=== PATIENT | female | born 1995 ===

== ENCOUNTER 2016-10-02 05:17 | Emergency (ER) | payer BC ==
[2016-10-02 05:34] VITALS: BP 97/56; PULSE 67; TEMP 97.9; BMI 19.5
[2016-10-02] MEDS ORDERED: SODIUM CHLORIDE 1,000 ML IV ONE ×2 (05:56→06:06)
[2016-10-02] MEDS ORDERED: ONDANSETRON 4 MG/2 ML VIAL IVPUSH ONE (05:57)
--- NOTE | 2016-10-02 06:02 | PDOC ---
History of Present Illness - General Chief Complaint: Vomiting/Diarrhea Stated Complaint: FOOD POISONING Time Seen by Provider: 10/02/16 06:01 History Source: Patient Exam Limitations: No Limitations - History of Present Illness Initial Comments: 10/02/16 06:07 This is a 21-year-old female who comes in complaining of nausea vomiting and diarrhea overnight. Patient said she's had multiple episodes of nausea vomiting and diarrhea. Patient denies any fevers or chills. Patient said that she has intermittent mild abdominal pain upper abdominal pain when she vomits and lower abdominal pain and diarrhea. Patient is otherwise healthy. PAST MEDICAL HISTORY: no significant history PAST SURGICAL HISTORY: no significant history FAMILY HISTORY: no pertinant history SOCIAL HISTORY: Pt lives with family and is employed. MEDICATIONS: reviewed ALLERGIES: As per nursing notes Review of Systems General: No fevers or chills, no weakness, no weight loss HEENT: No change in vision. No sore throat,. No ear pain CardioVascular: No chest pain or shortness of breath Respiratory:No cough, or wheezing. Gastrointestinal: + nausea, + vomitting, + diarrhea no constipation, No rectal bleeding Genitourinary: No dysuria, hematuria, or frequency Musculoskeletal: No joint or muscle pain or swelling Neurologic: No headache, vertigo, dizziness or loss of consciousness Psychiatric: nor depression Skin: No rashes or easy bruising Endocrine: no increased thirst or abnormal weight change Allergic: no skin or latex allergy All other systems reviewed and normal Exam: General: Well-nourished well-developed individual, no acute distress HEENT: Throat: Normal, tonsils normal, no erythema or exudate, mucus membranes dry Neck: Supple, no meningeal signs, no lymphadenopathy Eyes::Pupils equal reactive and round, extraocular motion intact Chest: Nontender to palpation Cardiac: S1-S2 normal, regular rate and rhythm, no murmurs rubs or gallops Respiratory: Lungs clear to auscultation bilateral Abdomen: Soft, nondistended, normal bowel sounds, nontender to palpation diffusely Extremities: Warm, dry, no cyanosis, clubbing, or edema Skin: No rashes Neuro: Alert and oriented x3, nonfocal exam, grossly intact, normal gait Psych: Normal mood and affect Past History - Past Medical History Allergies/Adverse Reactions: Allergies Allergy/AdvReac Type Severity Reaction Status Date / Time No Known Allergies Allergy Verified 10/02/16 05:20 Home Medications: Ambulatory Orders NK [No Known Home Medication] 10/02/16 Other medical history: DENIES - Psycho/Social/Smoking Cessation Hx Anxiety: No Suicidal Ideation: No Smoking History: Current every day smoker Have you smoked in the past 12 months: Yes Information on smoking cessation initiated: Yes 'Breaking Loose' booklet given: 10/02/16 Hx Alcohol Use: Yes Drug/Substance Use Hx: No Substance Use Type: None *Physical Exam - Vital Signs Last Vital Signs Temp Pulse Resp BP Pulse Ox 97.9 F 67 16 97/56 100 10/02/16 05:24 10/02/16 05:24 10/02/16 05:24 10/02/16 05:24 10/02/16 05:24 ED Treatment Course - Medications Given in the ED: ED Medications Discontinued Medications Generic Name Dose Route Start Last Admin Trade Name Amauri PRN Reason Stop Dose Admin Ondansetron HCl 4 mg 10/02/16 05:57 10/02/16 05:57 Zofran Injection IVPUSH 10/02/16 05:58 4 mg NOW ONE Administration *DC/Admit/Observation/Transfer Diagnosis at time of Disposition: Vomiting and diarrhea - Discharge Dispostion Disposition: HOME Condition at time of disposition: Stable Admit: No - Patient Instructions Printed Discharge Instructions: DI for Vomiting -- Adult, Diarrhea Additional Instructions: For the diarrhea take Imodium you can purchase the counter and take as directed on the box. For the nausea and vomiting take Zofran 1 tablet that it does also under your tongue as often as 3 times a day. Clear liquids only for the next 6 hours.. After that if you have had no further vomiting you may have bananas, rice, applesauce, or toast. If no further vomiting for another 8 hours you may have regular food. If you vomit again then nothing to eat or drink for 2 hours. then start back with the clear liquids. Return to the emergency department immediately with ANY new, persistent or worsening symptoms. You MUST call and follow up with your doctor tomorrow if not better. Please make sure your doctor reviews the results of your emergency evaluation. . Please make sure your doctor reviews the results of your emergency evaluation. Thank you for coming to the Emergency Department today for your care. It was a pleasure to see you today. Please note that your evaluation is INCOMPLETE until you follow-up with your doctor.
[2016-10-02] MEDS ORDERED: LOPERAMIDE HCL 2 MG CAPSULE PO ONE (06:24)
[2016-10-02] MEDS ORDERED: LOPERAMIDE HCL 2 MG CAPSULE ONE (06:30)
== END 2016-10-02 07:00 | disposition home or self-care (01) ==
LOC: FER 05:17
PROC: 3E033GC Introduction of Other Therapeutic Substance into Peripheral Vein, Percutaneous Approach (ICD-10-PCS; principal; 2016-10-02)
PROC: 3E0337Z Introduction of Electrolytic and Water Balance Substance into Peripheral Vein, Percutaneous Approach (ICD-10-PCS; 2016-10-02)
DX: R11.10 Vomiting, unspecified (principal); R19.7 Diarrhea, unspecified; F17.210 Nicotine dependence, cigarettes, uncomplicated
CPT/HCPCS: 99281-25